=== PATIENT | male | born 1945 | race Caucasian/White ===

== ENCOUNTER → 2016-10-31 | Outpatient (CLI) | payer MEDICARE, BC ==
[~2016-10-31] MED LIST: ALLOPURINOL300 MG PO; AMLODIPINE5 MG PO; ASPIRIN E.C. 8181 MG PO; ATORVASTATIN; CALCIUM CITRAT200 MG PO; CALCIUM1 CAP PO; EDARBI80 MG PO; ILOTYCIN5 MG/GM OP; INDERAL 20MG20 MG PO; LISINOPRIL HCTZ1 TAB PO; LUTEIN20 M1 PO; MULTIPLE VITAMI1 CAP PO; NEURONTIN100 MG PO; NORCO 325 MG-51 TAB PO; SUPER EPA W/BO400 MG PO; WELCHOL625 MG PO
== END ==
LOC: COL.LAB 08:38
DX: C61 Malignant neoplasm of prostate (principal); Z85.46 Personal history of malignant neoplasm of prostate
CPT/HCPCS: G0103

== ENCOUNTER → 2017-04-25 | Outpatient (CLI) | payer MEDICARE, BC ==
[2017-04-25 11:01] LABS: HEMATOCRIT 43.7 % (42.0-52.0); HEMOGLOBIN 14.9 g/dl (13.5-18.0); MEAN CELL VOLUME 97 fl (80.0-100.0); MEAN CORPUSCULAR HEMOGLOBIN 33 pg (27.0-31.0); MEAN CORPUSCULAR HGB CONC 34 g/dl (33.0-37.0); MEAN PLATELET VOLUME 10.1 fl (7.4-10.4); PLATELET COUNT 156 K/mm3 (130-400); RED BLOOD COUNT 4.52 M/mm3 (4.20-5.60); REDCELL DISTRIBUTION WIDTH-CV 13.2 % (11.5-14.5); WHITE BLOOD COUNT 6.6 K/mm3 (4.8-10.8)
[2017-04-25 11:14] LABS: ADJUSTED CALCIUM 9.3 mg/dL (8.4-10.2); ALBUMIN 4.5 gm/dL (3.5-5.0); BILIRUBIN,TOTAL 1.1 mg/dL (0.0-1.0); CALCIUM 9.7 mg/dL (8.4-10.2); CREATININE, serum 0.93 mg/dL (0.66-1.25); POTASSIUM 4.4 mmol/L (3.4-5.0); URIC ACID 4.7 mg/dL (3.5-8.5)
[2017-04-25 11:20] LABS: PH 6 (5-8); SQUAMOUS EPITHELIAL None Seen /hpf; URINE APPEARANCE Clear; URINE BACTERIA None Seen /hpf; URINE BILIRUBIN Negative (NEGATIVE); URINE BLOOD Negative (NEGATIVE); URINE COLOR Straw; URINE GLUCOSE Negative (NEGATIVE); URINE KETONE Negative (NEGATIVE); URINE RBC None Seen /hpf; URINE UROBILINOGEN Negative (NEGATIVE); URINE WBC 0-2 /hpf
[2017-04-25 11:43] LABS: THYROID STIMULATING HORMONE 2.69 uIU/mL (0.465-4.680)
== END ==
LOC: COL.CARD 09:42
PROVIDERS: Family Medicine
DX: Z00.00 Encounter for general adult medical examination without abnormal findings (principal); C61 Malignant neoplasm of prostate; M10.9 Gout, unspecified; I10 Essential (primary) hypertension; I49.3 Ventricular premature depolarization

== ENCOUNTER → 2017-12-25 | Outpatient (CLI) | payer MEDICARE, BC ==
[2017-12-25 09:01] LABS: ALBUMIN 3.5 gm/dL (3.5-5.0); BILIRUBIN,TOTAL 0.7 mg/dL (0.0-1.0); CALCIUM 9.2 mg/dL (8.4-10.2); CREATININE, serum 0.79 mg/dL (0.66-1.25); POTASSIUM 3.7 mmol/L (3.4-5.0); TOTAL PROTEIN 6.9 gm/dL (6.4-8.2)
[2017-12-25 09:26] LABS: HEMATOCRIT 39.3 % (42.0-52.0); HEMOGLOBIN 13.4 g/dl (13.5-18.0); MEAN CELL VOLUME 93 fl (80.0-100.0); MEAN CORPUSCULAR HEMOGLOBIN 32 pg (27.0-31.0); MEAN CORPUSCULAR HGB CONC 34 g/dl (33.0-37.0); MEAN PLATELET VOLUME 10.6 fl (7.4-10.4); PLATELET COUNT 169 K/mm3 (130-400); RED BLOOD COUNT 4.25 M/mm3 (4.20-5.60)
[2017-12-25 09:51] LABS: BAND 2 % (0-10); LYMPHOCYTE 19 % (20.0-51.0); NEUTROPHILS 77 % (42.0-75.2)
[2017-12-25 09:52] LABS: PLATELET ESTIMATE NORMAL (NORMAL); TOXIC GRANULATION PRESENT
== END ==
LOC: COL.RAD 08:02
PROVIDERS: Family Medicine
DX: Z53.8 Procedure and treatment not carried out for other reasons (principal); C7A.00 Malignant carcinoid tumor of unspecified site; C7A.8 Other malignant neuroendocrine tumors

== ENCOUNTER 2018-01-25 07:41 | Day surgery (SDC) | payer MEDICARE, BC ==
[~2018-01-25] VITALS: Ht 185.4 cm; Wt 100.4 kg
[2018-01-25 08:16] VITALS: BP 156/70; PULSE 54; TEMP 97.3
[2018-01-25] MEDS ORDERED: ZYLOPRIM 300MG300 MG PO (08:25)
[2018-01-25] MEDS ORDERED: EDARBI80 MG PO (08:27)
[2018-01-25] MEDS ORDERED: ZOCOR 40MG40 MG PO (08:28)
[2018-01-25] MEDS ORDERED: NORVASC2.5 MG PO (08:29)
[2018-01-25] MEDS ORDERED: ASPIRIN E.C. 8181 MG PO (08:29)
[2018-01-25] MEDS ORDERED: CREON 120000 U-1 ECC PO (08:31)
[2018-01-25] MEDS ORDERED: SOMATULINE DEP120 MG INJ (08:33)
[2018-01-25 10:47] VITALS: BP 134/63; PULSE 51; TEMP 97.4
[2018-01-25 10:50] LABS: HEMATOCRIT 37.1 % (42.0-52.0); HEMOGLOBIN 12.3 g/dl (13.5-18.0); MEAN CELL VOLUME 95 fl (80.0-100.0); MEAN CORPUSCULAR HEMOGLOBIN 32 pg (27.0-31.0); MEAN CORPUSCULAR HGB CONC 33 g/dl (33.0-37.0); MEAN PLATELET VOLUME 10.6 fl (7.4-10.4); PLATELET COUNT 139 K/mm3 (130-400); REDCELL DISTRIBUTION WIDTH-CV 14.5 % (11.5-14.5)
[2018-01-25 11:00] VITALS: BP 140/65; PULSE 49
[2018-01-25 11:04] LABS: ALBUMIN 3.4 gm/dL (3.5-5.0); BILIRUBIN,TOTAL 0.3 mg/dL (0.0-1.0); CALCIUM 8.6 mg/dL (8.4-10.2); CREATININE, serum 0.84 mg/dL (0.66-1.25); POTASSIUM 4.1 mmol/L (3.4-5.0); TOTAL PROTEIN 6.3 gm/dL (6.4-8.2)
[2018-01-25 11:13] LABS: BAND 9 % (0-10); BASOPHIL 2 % (0-2); EOSINOPHIL 5 % (0-4); LYMPHOCYTE 20 % (20.0-51.0); NEUTROPHILS 62 % (42.0-75.2); PLATELET ESTIMATE DECREASED (NORMAL)
[2018-01-25 11:15] VITALS: BP 151/65; PULSE 51
[2018-01-25 11:30] VITALS: BP 161/76; PULSE 50
== END 2018-01-25 12:05 | disposition home or self-care (01) ==
LOC: SDCO 07:41
PROVIDERS: Internal Medicine Medical Oncology
DX: C7A.019 Malignant carcinoid tumor of the small intestine, unspecified portion (principal); I10 Essential (primary) hypertension; D64.9 Anemia, unspecified; Z85.46 Personal history of malignant neoplasm of prostate; Z85.848 Personal history of malignant neoplasm of other parts of nervous tissue; Z90.79 Acquired absence of other genital organ(s); Z80.42 Family history of malignant neoplasm of prostate; Z80.41 Family history of malignant neoplasm of ovary
CPT/HCPCS: C1788; J0690; J1644; J2250; J2704

== ENCOUNTER 2018-05-22 08:05 | Outpatient (CLI) | payer MEDICARE, BC ==
[2018-05-22] VITALS (16 sets, daily range): BP systolic 124–183; BP diastolic 50–88; PULSE 48–61; TEMP 97.8
[~2018-05-22] VITALS: Ht 185.4 cm; Wt 103.4 kg
[~2018-05-22 08:05] MED LIST changes: +CREON 120000 U-1 ECC PO; +NORVASC2.5 MG PO; +SOMATULINE DEP120 MG INJ; +ZOCOR 40MG40 MG PO; +ZYLOPRIM 300MG300 MG PO
[2018-05-23] MEDS ORDERED: LIDODERM 5% PATC1 EA TP (18:20)
[2018-05-23] MEDS ORDERED: NORCO 325 MG-51 TAB PO (18:20)
== END 2018-05-22 12:32 | disposition home or self-care (01) ==
LOC: COL.RAD 08:05
DX: C7A.00 Malignant carcinoid tumor of unspecified site (principal); R91.1 Solitary pulmonary nodule
CPT/HCPCS: 32106

== ENCOUNTER 2018-05-23 16:59 | Emergency (ER) | payer MEDICARE, BC ==
[~2018-05-23] VITALS: Ht 185.4 cm; Wt 100.0 kg
[2018-05-23 17:02] VITALS: TEMP 98.4
[2018-05-23] MEDS ORDERED: NORCO 325 MG-51 TAB PO (18:20)
[2018-05-23] MEDS ORDERED: LIDODERM 5% PATC1 EA TP (18:20)
[2018-05-23 18:45] VITALS: BP 159/78; PULSE 54
== END 2018-05-23 18:45 | disposition home or self-care (01) ==
LOC: COL.ER 16:59
DX: J93.9 Pneumothorax, unspecified (principal); Z98.890 Other specified postprocedural states; Z85.89 Personal history of malignant neoplasm of other organs and systems

== ENCOUNTER → 2018-05-24 | Outpatient (CLI) | payer MEDICARE, BC ==
[~2018-05-24] MED LIST changes: +LIDODERM 5% PATC1 EA TP
== END ==
LOC: COL.RAD 11:36
DX: J93.9 Pneumothorax, unspecified (principal); Z95.828 Presence of other vascular implants and grafts

== ENCOUNTER → 2018-05-28 | Outpatient (CLI) | payer MEDICARE, BC | LOC: COL.RAD 08:23 | DX: J93.9 Pneumothorax, unspecified (principal); Z95.828 Presence of other vascular implants and grafts ==